=== PATIENT | male | born 1995 | race Two or more races ===

== ENCOUNTER 2023-11-05 04:44 | Inpatient (IN) | payer MEDICAID, OTHER ==
[~2023-11-05] VITALS: Ht 172.7 cm; Wt 67.4 kg
[2023-11-05] MEDS ORDERED: PROCHLORPERAZINE EDISYLATE 5 MG/ML 2ML VIAL IV ONE (05:00)
[2023-11-05] MEDS ORDERED: SODIUM CHLORIDE 0.9% 1,000 ML IVB ONE (05:00)
[2023-11-05] MEDS ORDERED: PANTOPRAZOLE 40 MG/10 ML VIAL INJ IV ONE ×2 (05:00→06:03)
[2023-11-05 05:31] LABS: Basophils # (auto) 0 10 ^3/uL (0-0.2); Basophils % (auto) 0.1 % (0.0-2.0); Eosinophils # (auto) 0.2 10 ^3/uL (0-0.8); Eosinophils % (auto) 2.3 % (0.0-7.0); Hematocrit 50.9 % (41.0-53.0); Hemoglobin 16.9 g/dL (13.5-17.5); Lymphocytes # (auto) 1.2 10 ^3/uL (0.4-5.4); Lymphocytes % (auto) 12.7 % (10.0-50.0); Mean Corpuscular Hemoglobin 28.8 pg (28.0-32.0); Mean Corpuscular Hgb Conc. 33.1 g/dL (32.0-36.0); Mean Corpuscular Volume 86.9 fL (80.0-100.0); Monocytes # (auto) 0.5 10 ^3/uL (0-1.3); Monocytes % (auto) 5.4 % (0.0-12.0); Neutrophils # (auto) 7.2 10 ^3/uL (1.6-8.6); Neutrophils % (auto) 79.5 % (37.0-80.0); Nucleated Red Blood Cells % 0.1 %; Red Blood Cells 5.86 10^6/uL (4.5-5.90); Red Cell Distribution Width 13.6 % (11.8-14.3); White Blood Cell 9.1 10^3/uL (4.4-10.8)
[2023-11-05 05:38] LABS: Alanine Aminotransferase 22 U/L (7-40); Alkaline Phosphatase 73 U/L (46-116); Anion Gap 8 (5-15); BUN/Creatinine Ratio 8.1 (10.0-20.0); Blood Urea Nitrogen 8 mg/dL (9-23); Calcium 8.6 mg/dL (8.7-10.4); Carbon Dioxide 23 mmol/L (20-30); Chloride 102 mmol/L (98-107); Glucose 139 mg/dL (74-106); Lipase 298 U/L (12-53); Potassium 3.4 mmol/L (3.5-5.1); Sodium 133 mmol/L (136-145)
[2023-11-05 05:39] LABS: Albumin 4.1 g/dL (3.2-4.8); Aspartate Aminotransferase 12 U/L (13-40); Bilirubin, Total 0.4 mg/dL (0.2-1.0); Total Protein 6.5 g/dL (5.7-8.2)
[2023-11-05 06:00] VITALS: PULSE 60; RESP 20; O2SAT 100
[2023-11-05] MEDS ORDERED: PROCHLORPERAZINE EDISYLATE 5 MG/ML 2ML VIAL ONE (06:03)
[2023-11-05] MEDS ORDERED: FAMO20TA10 PO (09:51)
[2023-11-05 10:00] VITALS: PULSE 85; RESP 14; O2SAT 96
[2023-11-05] MEDS ORDERED: POTASSIUM EFFERVESENT TAB 25 MEQ PO ONE (10:00)
[2023-11-05] MEDS ORDERED: ONDANSETRON HCL 4 MG/2 ML VIAL IV PRN (10:00)
[2023-11-05] MEDS ORDERED: KETOROLAC TROMETH 30 MG/ML 1ML VIAL IV ONE (10:00)
[2023-11-05] MEDS ORDERED: ACETAMINOPHEN 325 MG TAB PO PRN (10:00)
[2023-11-05] MEDS ORDERED: SODIUM CHLORIDE 0.9% 1,000 ML IV ONE ×2 (10:00)
[2023-11-05] MEDS ORDERED: KETOROLAC TROMETH 30 MG/ML 1ML VIAL IV PRN (10:15)
[2023-11-05] MEDS ORDERED: POTASSIUM EFFERVESENT TAB 25 MEQ ONE (10:40)
[2023-11-05] MEDS: SODIUM CHLORIDE 0.9% 1,000 ML IV SCH ×2 (12:18→16:51)
[2023-11-05 15:30] VITALS: RESP 18; O2SAT 94
[2023-11-05 17:00] VITALS: BP 110/59; PULSE 77; RESP 19; TEMP 97.3; O2SAT 96
[2023-11-05 17:18] LABS: Amphetamine Screen, Urine Pos (NEGATIVE); Barbiturate Scree,Urine Pos (NEGATIVE); Benzodiazephine Screen, Urine Neg (NEGATIVE); Cannabinoid Screen, Urine Pos (NEGATIVE); Cocaine Screen, Urine Neg (NEGATIVE); Opiate Scree,Urine Neg (NEGATIVE); Phencyclidine Screen, Urine Neg (NEGATIVE)
[2023-11-06] MEDS: SODIUM CHLORIDE 0.9% 1,000 ML IV SCH ×2 (02:08→11:00)
[2023-11-06 05:00] VITALS: BP 108/68; PULSE 57; RESP 15; TEMP 97.9; O2SAT 99
[2023-11-06 07:11] LABS: Alanine Aminotransferase 24 U/L (7-40); Alkaline Phosphatase 66 U/L (46-116); Anion Gap 5 (5-15); Aspartate Aminotransferase 15 U/L (13-40); BUN/Creatinine Ratio 5.6 (10.0-20.0); Basophils # (auto) 0 10 ^3/uL (0-0.2); Basophils % (auto) 0.1 % (0.0-2.0); Blood Urea Nitrogen 5 mg/dL (9-23); Calcium 8.5 mg/dL (8.7-10.4); Carbon Dioxide 27 mmol/L (20-30); Chloride 107 mmol/L (98-107); Eosinophils # (auto) 0.2 10 ^3/uL (0-0.8); Eosinophils % (auto) 3.2 % (0.0-7.0); Glucose 76 mg/dL (74-106); Hematocrit 48.3 % (41.0-53.0); Lipase 55 U/L (12-53); Lymphocytes # (auto) 1.4 10 ^3/uL (0.4-5.4); Lymphocytes % (auto) 20.8 % (10.0-50.0); Mean Corpuscular Hemoglobin 28.9 pg (28.0-32.0); Mean Corpuscular Hgb Conc. 33.2 g/dL (32.0-36.0); Mean Corpuscular Volume 87.1 fL (80.0-100.0); Monocytes # (auto) 0.6 10 ^3/uL (0-1.3); Monocytes % (auto) 8.5 % (0.0-12.0); Neutrophils # (auto) 4.6 10 ^3/uL (1.6-8.6); Neutrophils % (auto) 67.4 % (37.0-80.0); Nucleated Red Blood Cells % 0.1 %; Potassium 3.7 mmol/L (3.5-5.1); Red Blood Cells 5.55 10^6/uL (4.5-5.90); Red Cell Distribution Width 13.3 % (11.8-14.3); Sodium 139 mmol/L (136-145); White Blood Cell 6.8 10^3/uL (4.4-10.8)
[2023-11-06 07:12] LABS: Bilirubin, Total 0.9 mg/dL (0.2-1.0); Total Protein 6.2 g/dL (5.7-8.2)
[2023-11-06 08:30] VITALS: BP 104/60; PULSE 67; RESP 17; TEMP 98.6; O2SAT 99
[2023-11-06 09:04] VITALS: BP 104/60; PULSE 67; RESP 17; TEMP 98.6; O2SAT 99
[2023-11-06] MEDS: PANTOPRAZOLE 40 MG/10 ML VIAL INJ IV SCH (10:00)
[2023-11-06 12:28] VITALS: BP 119/71; PULSE 88; RESP 16; TEMP 97.9; O2SAT 100
[2023-11-06 17:08] VITALS: BP 111/81; PULSE 76; RESP 21; TEMP 98.3; O2SAT 100
[2023-11-06 22:00] VITALS: BP 101/60; PULSE 95; RESP 20; TEMP 98; O2SAT 100
[2023-11-06] MEDS ORDERED: MELATONIN 5 MG TAB PO SCH (23:30)
[2023-11-06] MEDS ORDERED: MELATONIN 5 MG TAB ONE (23:42)
[2023-11-07 05:00] VITALS: BP 106/72; PULSE 80; RESP 16; TEMP 98; O2SAT 94
[2023-11-07] MEDS: PANTOPRAZOLE 40 MG/10 ML VIAL INJ IV SCH (07:16)
[2023-11-07 08:30] VITALS: BP 102/64; PULSE 67; RESP 18; TEMP 98.2
[2023-11-07 08:53] VITALS: BP 102/64; PULSE 67; RESP 18; TEMP 98.2; O2SAT 98
[2023-11-07 12:06] VITALS: BP_SYST 102; BP_SYST 120; BP_DIAS 64; BP_DIAS 78; PULSE 67; PULSE 80; RESP 18; RESP 19; TEMP 98.2; TEMP 98.3; O2SAT 98
[2023-11-07 12:53] VITALS: BP 120/78; PULSE 80; RESP 19; TEMP 98.3; O2SAT 98
== END 2023-11-07 13:55 | disposition home or self-care (01) | DRG 282 ==
LOC: ER 04:44 → EDSEX 04:44 → OVERFLOW 09:46 → WEST WING 15:56
PROVIDERS: ADMIT Nurse Practitioner Family; ATTEND Nurse Practitioner Family
DX: K85.90 Acute pancreatitis without necrosis or infection, unspecified (principal); F12.90 Cannabis use, unspecified, uncomplicated; F15.10 Other stimulant abuse, uncomplicated; R74.8 Abnormal levels of other serum enzymes
CPT/HCPCS: 36415; 74176; 76705; 80053; 80307; 82150; 83690; 83735; 85025; C9113; G0378

== ENCOUNTER 2024-05-23 09:31 | Emergency (ER) | payer MEDICAID ==
[~2024-05-23] VITALS: Ht 175.3 cm; Wt 66.6 kg
[~2024-05-23 09:31] MED LIST: FAMO20TA10 PO
[2024-05-23 10:17] VITALS: BP 120/79; PULSE 101; RESP 16; TEMP 98.1; O2SAT 100
[2024-05-23 10:38] LABS: Urine Bacteria FEW /hpf (None Seen); Urine Blood Negative /uL (Negative); Urine Clarity Clear (Clear); Urine Color Yellow (Yellow); Urine Hyaline Cast FEW /lpf (0 - 2); Urine Mucus FEW (None Seen); Urine Protein, UAD TRACE (Negative); Urine Specific Gravity 1.029 (1.001-1.035); Urine Urobilinogen Normal (Negative); Urine WBC 1 /hpf (0 - 3); Urine pH 5.5 (5.0-9.0)
== END 2024-05-23 10:53 | disposition home or self-care (01) ==
LOC: ER 09:31
DX: S01.01XD Laceration without foreign body of scalp, subsequent encounter (principal); S31.21XD Laceration without foreign body of penis, subsequent encounter; F15.90 Other stimulant use, unspecified, uncomplicated; Z48.02 Encounter for removal of sutures; Z79.899 Other long term (current) drug therapy; Z91.09 Other allergy status, other than to drugs and biological substances; X58.XXXD Exposure to other specified factors, subsequent encounter
CPT/HCPCS: 81001

== ENCOUNTER 2025-04-27 17:11 | Emergency (ER) | payer MEDICAID ==
[~2025-04-27] VITALS: Ht 175.3 cm; Wt 68.8 kg
[2025-04-27 18:24] VITALS: BP 119/74; PULSE 103; RESP 16; TEMP 98.1; O2SAT 97
[2025-04-28] MEDS ORDERED: IBUP-1455 PO (16:49)
== END 2025-04-27 20:00 | disposition left against medical advice (07) ==
LOC: ER 17:11
DX: R51.9 Headache, unspecified (principal); Z53.21 Procedure and treatment not carried out due to patient leaving prior to being seen by health care provider; W22.8XXA Striking against or struck by other objects, initial encounter; Y93.89 Activity, other specified; Y92.89 Other specified places as the place of occurrence of the external cause; Y99.8 Other external cause status

== ENCOUNTER 2025-04-28 14:14 | Emergency (ER) | payer MEDICAID ==
[~2025-04-28] VITALS: Ht 175.3 cm; Wt 70.1 kg
[2025-04-28] MEDS: KETOROLAC TROMETH 60MG/2ML VIAL IM ONE (15:30)
--- NOTE | 2025-04-28 15:32 | ED.PDOC ---
Aiden. trauma (HPI) HPI Comments 29 y/o M, presents to the ED for CC of face and nasal pain. Patient states, he has been experiencing facial and nasal pain associated with nasal bridge pain following a slip and fall in his bathtub x1week ago. Patient reports, "I feel as if my nose is jello". Patient denies loss of consciousness, headache, or blurred vision. No other symptoms or modifying factors present at this time. Vital signs were stable. Patient states initial blood loss, but no bleeding subsequent to the initial insult. 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-intolerant Home Meds Reported Medications Famotidine (PEPCID TABLET) 20 Mg Tb, 1 TAB PO BID 11/05/23 Information Source: Patient Mode of Arrival: Ambulatory Severity: Moderate Timing: Weeks Duration: Since onset Prehospital treatment: None Location: Face Location of laceration: None Mechanism: Fall Associated signs and symtoms: None Past Medical History PAST MEDICAL HISTORY: Denies Surgical History: Denies all surgeries Family History Family History: No family hx of Cancer, No family hx of DM, No family hx of Heart kavita, No family hx of HTN Social History Smoker: Non-Smoker Alcohol: Occasionally Drugs: Marijuana, Methamphetamine Lives In: Home Constitutional: denies: chills, diaphoresis, fatigue, fever, malaise, sweats, weakness, others EENTM: reports: others (face pain, nasal bridge pain); denies: blurred vision, double vision, ear bleeding, ear discharge, ear drainage, ear pain, ear ringing, eye pain, eye redness, hearing loss, mouth pain, mouth swelling, nasal discharge, nose bleeding, nose congestion, nose pain, photophobia, tearing, throat pain, throat swelling, voice changes Respiratory: denies: cough, hemoptysis, orthopnea, SOB at rest, shortness of breath, SOB with excertion, stridor, wheezing, others Cardiovascular: denies: chest pain, dizzy spells, diaphoresis, Dyspnea on exertion, edema, irregular heart beat, left arm pain, lightheadedness, palpitations, PND, syncope, others Gastrointestinal: denies: abdomen distended, abdominal pain, blood streaked bowels, constipated, diarrhea, dysphagia, difficulty swallowing, hematemesis, melena, nausea, poor appetite, poor fluid intake, rectal bleeding, rectal pain, vomiting, others Genitourinary: denies: burning, dysuria, flank pain, frequency, hematuria, incontinence, penile discharge, penile sore, pain, testicle pain, testicle swelling, urgency, others Neurological: denies: dizziness, fainting, headache, left sided numbness, left sided weakness, numbness, paresthesia, pre-existing deficit, right sided numbness, right sided weakness, seizure, speech problems, tingling, tremors, weakness, others Musculoskeletal: denies: back pain, gout, joint pain, joint swelling, muscle pain, muscle stiffness, neck pain, others Integumetry: denies: bruises, change in color, change in hair/nails, dryness, laceration, lesions, lumps, rash, wounds, others Allergic/Immunocompromised: denies: Difficulty Healing, Frequent Infections, Hives, Itching, others Hematologic/Lymphatic: denies: anemia, blood clots, easy bleeding, easy bruising, swollen glands, others Endocrine: denies: excessive hunger, excessive sweating, excessive thirst, excessive urination, flushing, intolerance to cold, intolerance to heat, unexplained weight gain, unexplained weight loss, others Psychiatric: denies: anxiety, bipolar disorder, depression, hopeless, panic disorder, schizophrenia, sleepless, suicidal, others All Other Systems: Reviewed and Negative Physical Exam General Appearance: Mild Distress (Moderate distress due to nasal and facial discomfort.), Normal HEENT: Pharynx Normal, TMs Normal, Other (Patient displays some mild edema noted to the nasal bridge. No definitive deformity appreciated. No ecchymosis. No septal hematoma appreciated.) Neck: Full Range of Motion, Non-Tender, Normal, Normal Inspection Respiratory: Chest Non-Tender, Lungs Clear, No Accessory Muscle Use, No Respiratory Distress, Normal Breath Sounds Cardiovascular: No Edema, No JVD, No Murmur, No Gallop, Normal Peripheral Pulses, Regular Rate/Rhythm Breast Exam: Deferred Gastrointestinal: No Organomegaly, Non Tender, No Pulsatile Mass, Normal Bowel Sounds, Soft Genitalia: Deferred Pelvic: Deferred Rectal: Deferred Extremities: No calf tenderness, Normal capillary refill, Normal inspection, Normal range of motion, Non-tender, No pedal edema Neurologic: Alert, No Motor Deficits, Normal Affect, Normal Mood, No Sensory Deficits Cerebellar Function: Normal Reflexes: Normal Skin: Dry, Normal Color, Warm Lymphatic: No Adenopathy Was a procedure done? Was a procedure done?: No Differential Diagnosis Multiple Trauma: Closed Head Injury, Other (nasal fracture, facial trauma) X-Ray, Labs, Meds, VS Vital Signs Date Time Temp Pulse Resp B/P (MAP) Pulse Ox O2 Delivery O2 Flow Rate FiO2 04/28/25 16:27 17 97 Room Air 04/28/25 16:27 98.1 85 18 131/82 (98) 97 98.1 04/28/25 14:20 98.3 84 16 130/81 (97) 100 98.3 Current Medications Medications (Trade) Dose Ordered Sig/Macrina Route Start Time Stop Time Status Last Admin Ketorolac Tromethamine (Toradol Injection) 30 mg ONCE ONCE IM 04/28/25 15:45 04/28/25 15:46 DC 04/28/25 15:30 X-Ray, Labs, Meds, VS Comment All studies performed the ED were evaluated by me personally. Imaging studies were unremarkable for any acute nasal or facial fractures. Patient sustained some facial trauma. Advised continued Tylenol and or Motrin as needed for pain relief as well as ice therapy. Time of 1ST Reevaluation: 16:48 Reevaluation 1ST: Improved Consultation: PCP Patient Education/Counseling: Diagnosis, Treatment Family Education/Counseling: Diagnosis, Treatment, No Family Present Departure 1 Departure Time of Disposition: 16:48 Impression: Primary Impression: Facial trauma Disposition: HOME / SELF CARE / HOMELESS Condition: Stable Additional Instructions: Advised continued Tylenol and or Motrin as needed for symptomatic pain relief as well as ice therapy. e-Prescriptions Ibuprofen Micronized (Ibuprofen) 800 Mg Tab 800 MG PO Q8HP PRN, #15 TAB Prov: JOSE CHAKRABORTY PAC 04/28/25 Discharged With: Self Critical Care Note Critical Care Time?: No Stability Stability form required: No Heart Score Heart Score: Heart Score Response (Comments) Value History N/A 0 EKG N/A 0 Age N/A 0 Risk Factors N/A 0 Troponin N/A 0 Total 0 I personally scribed for JOSE CHAKRABORTY PAC ([email or web address]) on 04/28/25 at 15:32. Electronically submitted by Rajani Michael ([email or web address]). JOSE CHAKRABORTY PAC Apr 28, 2025 15:32
[2025-04-28 16:27] VITALS: BP 131/82; PULSE 85; RESP 17; TEMP 98.1; O2SAT 97
--- NOTE | 2025-04-28 16:28 | DVH ---
CLINICAL INDICATION: Facial pain TECHNIQUE: 4 radiographic views of the facial bones were obtained. Comparison: None FINDINGS/IMPRESSION: Radiopaque foreign body noted over the left zygomatic process. There is no evidence of acute fracture or dislocation. The visualized joint space is well maintained. The alignment is anatomical. There is no radiopaque foreign body.
[2025-04-28] MEDS ORDERED: IBUP-1455 PO (16:49)
== END 2025-04-28 17:23 | disposition home or self-care (01) ==
LOC: ER 14:14
DX: S09.93XA Unspecified injury of face, initial encounter (principal); F12.90 Cannabis use, unspecified, uncomplicated; W01.0XXA Fall on same level from slipping, tripping and stumbling without subsequent striking against object, initial encounter; Y93.89 Activity, other specified; Y92.89 Other specified places as the place of occurrence of the external cause; Y99.8 Other external cause status
CPT/HCPCS: 70140; 96372; 99283; J1885